=== PATIENT | female | born 1960 | race Hispanic/Latino ===

== ENCOUNTER 2018-04-28 10:51 | Outpatient (CLI) | payer MEDICAID ==
--- NOTE | 2018-04-29 07:43 | Magnetic Resonance Report ---
MR CERVICAL SPINE WITHOUT CONTRAST HISTORY: Headache, radiculopathy in cervical region. TECHNIQUE: Axial T2 and T2 gradient. Sagittal T1, T2 and STIR. COMPARISON: Cervical spine films dated 12/08/07. FINDINGS: The cervical spinal cord is normal size and signal intensity throughout. No abnormal intramedullary signal is detected. Normal height and alignment of the cervical vertebral bodies. There is mild straightening of the normal lordosis. Normal bone marrow signal. There is diffuse disc desiccation and mild disc space narrowing which is most pronounced at C6-7. The facet joints are in appropriate relationship. Multilevel facet arthropathy is identified. Some levels demonstrate mild to moderate hypertrophic changes The paraspinal soft tissues are within normal limits. C2-3: No significant abnormality with the disc. Mild hypertrophic arthropathy of the left facet joint. No canal stenosis. Mild left neuroforaminal narrowing estimated at 25%. C3-4: Moderate right uncovertebral spurring. Mild to moderate hypertrophic facet arthropathy. No central canal stenosis. Severe right neural foraminal narrowing is estimated at 75% or greater. C4-5: Moderate posterior and bilateral uncovertebral spurring. Mild facet arthropathy. This results in moderate central canal narrowing measuring 8 mm in AP dimension. Bilateral neural foraminal narrowing is estimated at 50-75%. C5-6: Moderate posterior and bilateral uncovertebral spurring. Minimal facet arthropathy. There is mild central canal narrowing measuring 9 mm in AP dimension. Moderate to severe bilateral neural foraminal narrowing estimated at 75% or greater. C6-7: Mild posterior and bilateral uncovertebral spurring. A focal midline annular tear and tiny disc protrusion are identified. There is moderate central canal narrowing measuring 8 mm in AP dimension. Mild bilateral neural foraminal narrowing estimated at 50%. There appears to be a 5 mm nerve sheath cyst associated with the exiting left nerve at this level on axial T2 image 14. C7-T1: No significant abnormality. IMPRESSION: Moderate to severe multilevel cervical spondylosis is identified. Multilevel mild central canal narrowing and multilevel moderate to severe neural foraminal narrowing is identified as outlined above. Midline annular tear and tiny disc protrusion at C6-7. Nerve root cyst as described of unclear significance.
== END 2018-04-28 10:52 | disposition home or self-care (01) ==
LOC: MRI 10:51
PROVIDERS: ATTEND Psychiatry & Neurology Neurology
DX: M50.223 Other cervical disc displacement at C6-C7 level (principal); M54.12 Radiculopathy, cervical region; R51 Headache; M12.88 Other specific arthropathies, not elsewhere classified, other specified site; M47.896 Other spondylosis, lumbar region; G96.19 Other disorders of meninges, not elsewhere classified
CPT/HCPCS: 72141

== ENCOUNTER 2018-04-30 06:58 | Outpatient (CLI) | payer MEDICAID ==
--- NOTE | 2018-04-30 11:33 | Magnetic Resonance Report ---
MRI BRAIN WITHOUT CONTRAST: 04/30/18 06:58:00 CLINICAL: Headache. TECHNIQUE: Axial diffusion, T1, T2, gradient echo T2*, and coronal and axial FLAIR, and sagittal T1 sequences on a 1.5 Zena magnet. FINDINGS: Normal ventricles and sulci. No restricted diffusion. Subtle focal left parietal white matter hyperintensities on FLAIR and T2 with an associated vascular flow void which extends to the left lateral ventricle area. No mass or mass effect. No hemorrhage, edema or extra-axial collection. Normal pituitary and optic chiasm. The brainstem and cerebellum are normal. Intact vascular flow voids. Mild bilateral ethmoid and maxillary sinus mucoperiosteal thickening. No air-fluid levels in the sinuses. The orbits, and soft tissues are normal. Normal calvarium and skull base. IMPRESSION: 1. No mass and no acute change. 2. 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 MRI brain with contrast would be helpful for better delineation. These DVAs are usually not clinically significant and are usually asymptomatic but headache has been reported as a possible symptom.
--- NOTE | 2018-04-30 11:36 | Magnetic Resonance Report ---
MRA HEAD WITHOUT CONTRAST: 04/30/18 06:58:00 CLINICAL: Headache TECHNIQUE: Axial 3-D [id number] MR angiography of the [place] with review of axial source images. FINDINGS: Intact [place] of [place] with no aneurysm, stenosis or occlusion. Symmetric blood flow in the anterior, middle and posterior cerebral arteries. Normal basilar and vertebral arteries. IMPRESSION: Normal study. No anomalous vessels are identified in the left parietal lobe to correlate with the findings on MRI brain which suggest a developmental venous anomaly (DVA). However, this is not exclude DVA is a possibility since MRI brain with contrast would be more sensitive in detection of DVA.
== END 2018-04-30 06:59 | disposition home or self-care (01) ==
LOC: MRI 06:58
PROVIDERS: ATTEND Psychiatry & Neurology Neurology
DX: M54.12 Radiculopathy, cervical region (principal); R51 Headache; J34.89 Other specified disorders of nose and nasal sinuses
CPT/HCPCS: 70544; 70551

== ENCOUNTER 2019-01-20 09:10 | Emergency (ER) | payer MEDICAID ==
[2019-01-20 09:19] VITALS: BP 152/74
--- NOTE | 2019-01-20 10:06 | Cat Scan Report ---
CT HEAD WITHOUT CONTRAST: HISTORY: Fall, head injury, loss of consciousness. TECHNIQUE: Sequential 2.5mm CT images. COMPARISON: MR brain dated 04/30/18. FINDINGS: Cerebral Parenchyma: Within normal limits. Cerebellum: Within normal limits. Brainstem: Within normal limits. Ventricles: Normal. Sella: Normal. Extra-axial spaces: Normal. Basal Cisterns: Normal. Intracranial Hemorrhage: None. Midline Shift: None. Calvarium: Normal. Sinuses: Moderate mucosal thickening and fluid is noted in both maxillary sinuses. 1 cm mucous retention cyst versus polyp is noted in the right sphenoid sinus. Mastoid Air Cells: Normal. Visualized Orbits: Normal. IMPRESSION: Cranial CT scan within normal limits. No evidence for acute intracranial injury. Sinus disease as described which is likely chronic, correlate for acute symptoms.
[2019-01-20] MEDS ORDERED: TORADOL IM ONE (10:31)
[2019-01-20] MEDS ORDERED: ZOFRAN ODT PO ONE (10:31)
[2019-01-20] MEDS ORDERED: NORCO 5/325 PO ONE (10:31)
--- NOTE | 2019-01-20 11:04 | Emergency Department Report ---
ED Fall HPI - General Chief Complaint: Fall Stated Complaint: FALL AND HIT HEAD Time Seen by Provider: 01/20/19 09:47 Source: patient Mode of arrival: Ambulatory Limitations: No Limitations - History of Present Illness Initial Comments: 58-year-old female with no significant past medical history presents with complaints of pain status post fall. Patient tripped over a fan in her dog while exiting the bathroom. She struck the left side of her head and body on a dresser and floor. Positive LOC. Family members state they heard the loud fall. Patient now complains of headache, left periorbital swelling, left elbow, left wrist, and left leg pain. Patient states she has chronic neck pain without change. No numbness or weakness reported. Patient complains of nausea without vomiting. - Related Data Previous Rx's Medication Instructions Recorded Last Taken Type Ibuprofen [Motrin] 800 mg PO Q8HR PRN #30 tablet 01/20/19 Unknown Rx Ondansetron [Zofran Odt] 4 mg PO Q8HR PRN #20 tab.rapdis 01/20/19 Unknown Rx Allergies Allergy/AdvReac Type Severity Reaction Status Date / Time No Known Allergies Allergy Unverified 04/28/18 10:52 ED Review of Systems ROS: Stated complaint: FALL AND HIT HEAD Other details as noted in HPI Comment: All other systems reviewed and negative ED Past Medical Hx - Past Medical History Previous Medical History?: No - Surgical History Past Surgical History?: Yes Hx Appendectomy: Yes Additional Surgical History: Hysterectomy - Social History Smoking Status: Never Smoker Substance Use Type: None - Medications Home Medications: Home Medications Medication Instructions Recorded Confirmed Last Taken Type Ibuprofen [Motrin] 800 mg PO Q8HR PRN #30 tablet 01/20/19 Unknown Rx Ondansetron [Zofran Odt] 4 mg PO Q8HR PRN #20 tab.rapdis 01/20/19 Unknown Rx ED Physical Exam - General Limitations: No Limitations - Other Other exam information: General: No limitations, patient is alert in no acute distress Head exam: Left lateral supraorbital swelling and tenderness with tenderness extending to infraorbital and left maxillary area without deformity or crepitus. Eyes exam: Normal appearance, pupils equal reactive to light, extraocular movements intact ENT: Moist mucous membrane, normal oropharynx Neck exam: Normal inspection, full range of motion, no meningismus nontender Respiratory exam: Clear to auscultation bilateral, no wheezes, rales, crackles Cardiovascular: Normal rate and rhythm, normal heart sounds Abdomen: Soft, nondistended, and nontender, with normal bowel sounds, no rebound, or guarding Extremity: Left elbow, left wrist tenderness with mild swelling and ecchymosis. Pain with movement. Left knee abrasion superficial noted. Full range of motion with minimal discomfort. No deformity. Back: Normal Inspection, full range of motion, no tenderness Neurologic: Alert, oriented x3, cranial nerves intact, no motor or sensory deficit Psychiatric: normal affect, normal mood Skin: Warm, dry, intact ED Course Vital Signs 01/20/19 09:18 Temperature 97.7 F Pulse Rate 83 Respiratory 18 Rate Blood Pressure 152/74 O2 Sat by Pulse 98 Oximetry ED Medical Decision Making - Radiology Data Radiology results: report reviewed CT HEAD WITHOUT CONTRAST: HISTORY: Fall, head injury, loss of consciousness. TECHNIQUE: Sequential 2.5mm CT images. COMPARISON: MR brain dated 04/30/18. FINDINGS: Cerebral Parenchyma: Within normal limits. Cerebellum: Within normal limits. Brainstem: Within normal limits. Ventricles: Normal. Sella: Normal. Extra-axial spaces: Normal. Basal Cisterns: Normal. Intracranial Hemorrhage: None. Midline Shift: None. Calvarium: Normal. Sinuses: Moderate mucosal thickening and fluid is noted in both maxillary sinuses. 1 cm mucous retention cyst versus polyp is noted in the right sphenoid sinus. Mastoid Air Cells: Normal. Visualized Orbits: Normal. IMPRESSION: Cranial CT scan within normal limits. No evidence for acute intracranial injury. Sinus disease as described which is likely chronic, correlate for acute symptoms. CT FACIAL BONES WITHOUT CONTRAST: HISTORY: Left periorbital and maxillary pain, swelling. TECHNIQUE: Helical CT images with sagittal and coronal CT reformations. FINDINGS: Moderate mucosal thickening and fluid is identified in the maxillary sinuses. Mild mucosal thickening is noted in the ethmoid sinuses. 1 cm mucous retention cyst versus polyp is noted in the right sphenoid sinus. No sinus wall fracture. The orbital cavities are symmetric and intact. The mandible is intact. The skull base and upper cervical spine demonstrate no evidence for acute injury. Left periorbital soft tissue swelling is noted. IMPRESSION: No facial fracture is identified. Left facial soft tissue swelling. Sinus disease as described. LEFT ELBOW, 3 views: History: Injury. The bony architecture is intact without evidence of fracture or dislocation. No significant soft tissue abnormality is seen. IMPRESSION: Left elbow within normal limits LEFT WRIST, 4 views: HISTORY: Injury. Mild osteopenia. Mild osteoarthritis. No evidence for fracture, dislocation or ligamentous injury. There is a 5 mm soft tissue calcification in the anterior soft tissues of uncertain significance. IMPRESSION: No acute injury is identified. Osteopenia. Mild osteoarthritis. LEFT KNEE, 3 views: History: Injury. The bony architecture is intact without evidence of fracture or dislocation. Mild medial compartment joint space narrowing and mild tibial spine spurring are noted. No significant soft tissue abnormality is seen. IMPRESSION: Mild osteoarthritis. No acute injury identified. - Medical Decision Making Patient has head injury with LOC and was treated like a concussion since CT head is unremarkable. Mucosal thickening noted but patient does not have clinical signs of acute sinus infection. ENT phonophobia encouraged. Orthopedic follow- up will be encouraged for arthralgias/sprains without signs of fracture. Patient provided a wrist Velcro splint and sling. Treated with [place], Toradol, and Zofran and EEG. - Differential Diagnosis ICH, concussion, fracture, strain Critical Care Time: No Critical care attestation.: If time is entered above; I have spent that time in minutes in the direct care of this critically ill patient, excluding procedure time. ED Disposition Clinical Impression: Head injury, closed, with LOC of unknown duration, Left elbow contusion, Left wrist sprain, Contusion of left knee, Fall, Contusion of face, Chronic sinusitis Disposition: DC-01 TO HOME OR SELFCARE Is pt being admited?: No Does the pt Need Aspirin: No Condition: Stable Instructions: Concussion (ED), Elbow Sprain (ED), Wrist Sprain (ED), Knee Pain (ED), Sinusitis (ED), Contusion in Adults (ED) Additional Instructions: Take the medication as prescribed. Follow up with your doctor or the clinic/doctor provided. Return if symptoms worsen as indicated by your discharge instructions Prescriptions: Ibuprofen [Motrin] 800 mg PO Q8HR PRN #30 tablet PRN Reason: Pain , Severe (7-10) Ondansetron [Zofran Odt] 4 mg PO Q8HR PRN #20 tab.rapdis PRN Reason: Nausea And Vomiting Referrals: JR DASH MD [Staff Physician] - 3-5 Days (orthopedic ) VIVIEN SLAUGHTER MD [Staff Physician] - 3-5 Days (ear nose and throat doctor) JANELL RILEY MD [Primary Care Provider] - 3-5 Days (primary care doctor ) Time of Disposition: 12:06
--- NOTE | 2019-01-20 11:26 | XRay Report ---
LEFT KNEE, 3 views: History: Injury. The bony architecture is intact without evidence of fracture or dislocation. Mild medial compartment joint space narrowing and mild tibial spine spurring are noted. No significant soft tissue abnormality is seen. IMPRESSION: Mild osteoarthritis. No acute injury identified.
--- NOTE | 2019-01-20 11:27 | XRay Report ---
LEFT ELBOW, 3 views: History: Injury. The bony architecture is intact without evidence of fracture or dislocation. No significant soft tissue abnormality is seen. IMPRESSION: Left elbow within normal limits.
--- NOTE | 2019-01-20 11:27 | XRay Report ---
LEFT WRIST, 4 views: HISTORY: Injury. Mild osteopenia. Mild osteoarthritis. No evidence for fracture, dislocation or ligamentous injury. There is a 5 mm soft tissue calcification in the anterior soft tissues of uncertain significance. IMPRESSION: No acute injury is identified. Osteopenia. Mild osteoarthritis.
--- NOTE | 2019-01-20 11:41 | Cat Scan Report ---
CT FACIAL BONES WITHOUT CONTRAST: HISTORY: Left periorbital and maxillary pain, swelling. TECHNIQUE: Helical CT images with sagittal and coronal CT reformations. FINDINGS: Moderate mucosal thickening and fluid is identified in the maxillary sinuses. Mild mucosal thickening is noted in the ethmoid sinuses. 1 cm mucous retention cyst versus polyp is noted in the right sphenoid sinus. No sinus wall fracture. The orbital cavities are symmetric and intact. The mandible is intact. The skull base and upper cervical spine demonstrate no evidence for acute injury. Left periorbital soft tissue swelling is noted. IMPRESSION: No facial fracture is identified. Left facial soft tissue swelling. Sinus disease as described.
== END 2019-01-20 12:16 | disposition home or self-care (01) ==
LOC: ED 09:10
DX: S63.502A Unspecified sprain of left wrist, initial encounter (principal); S00.12XA Contusion of left eyelid and periocular area, initial encounter; S80.02XA Contusion of left knee, initial encounter; S50.02XA Contusion of left elbow, initial encounter; J32.0 Chronic maxillary sinusitis; R55 Syncope and collapse; Z90.710 Acquired absence of both cervix and uterus; W01.198A Fall on same level from slipping, tripping and stumbling with subsequent striking against other object, initial encounter; Y93.89 Activity, other specified; Y92.091 Bathroom in other non-institutional residence as the place of occurrence of the external cause; Y99.8 Other external cause status
CPT/HCPCS: 29125; 70450; 70486; 73080; 73110; 73562; 96372; 99285; J1885; Q0162